=== PATIENT | female | born 1980 | race Two or more races ===

== ENCOUNTER 2019-10-22 18:02 | Emergency (ER) | payer SELFPAY ==
[~2019-10-22] VITALS: Ht 154.9 cm; Wt 81.8 kg
[~2019-10-22 18:02] MED LIST: IBUP200C PO
[2019-10-22 18:38] VITALS: BP 165/107
[2019-10-22] MEDS ORDERED: CEPH500C PO (19:11)
--- NOTE | 2019-10-22 19:11 | PHYS DOC ---
Past Medical History Past Medical History: No Pertinent History Past Surgical History: No Surgical History Smoking Status: Never Smoker Alcohol Use: None Drug Use: None Adult General Chief Complaint Chief Complaint: ABSCESS HPI HPI Patient is a 39 year old female who presents to the emergency department with complaints of a tender, red, warm area to the right posterior scalp for the last 2-3 days. She denies any fever, cough, ear pain, sore throat, nausea, vomiting, diarrhea, abdominal pain, shortness of breath, itching, or rash. Patient states that there has been no drainage or bleeding from the site. Currently rates the discomfort a 10 out of 10 on the pain scale, the pain increases at the areas touch. She denies any alleviating factors. Review of Systems Review of Systems Complete ROS is negative unless otherwise noted in HPI. Allergies Allergies Allergies Coded Allergies Type Severity Reaction Last Updated Verified No Known Drug Allergies 03/02/14 No Physical Exam Physical Exam See Above Constitutional: Well developed, well nourished, no acute distress, non-toxic appearance. [] HENT: Normocephalic, atraumatic, bilateral external ears normal, oropharynx moist, no oral exudates, nose normal. [] Eyes: PERRLA, EOMI, conjunctiva normal, no discharge. [] Neck: Normal range of motion, no tenderness, supple, no stridor. [] Cardiovascular:Heart rate regular rhythm Lungs & Thorax: Respirations even and unlabored, no retractions, no respiratory distress Skin: Warm, dry, no erythema, no rash; 1 cm diameter erythemic, warm, tender area noted to right posterior scalp, no active drainage or bleeding, consistent with ingrown hair/ folliculitis. [] Extremities: No cyanosis, ROM intact, no edema. [] Neurologic: Alert and oriented X 3, no focal deficits noted. [] Psychologic: Affect normal, judgement normal, mood normal. [] Current Patient Data Vital Signs Vital Signs Date Time Temp Pulse Resp B/P (MAP) Pulse Ox O2 Delivery O2 Flow Rate FiO2 10/22/19 18:38 98.3 81 18 165/107 (126) 100 Room Air 98.3 EKG EKG [] Radiology/Procedures Radiology/Procedures [] Course & Med Decision Making Course & Med Decision Making Pertinent Labs and Imaging studies reviewed. (See chart for details) [] Dragon Disclaimer Dragon Disclaimer This electronic medical record was generated, in whole or in part, using a voice recognition dictation system. Departure Departure Impression: Primary Impression: Ingrown hair Additional Impression: Folliculitis Disposition: 01 HOME, SELF-CARE Condition: STABLE Referrals: UNKNOWN PCP NAME (PCP) Patient Instructions: Folliculitis Additional Instructions: Fill the prescription and take as directed. Take Tylenol or Ibuprofen as needed for pain. Apply warm moist heat to area every 3-4 hours while awake and as needed for comfort. Follow up with your primary care doctor at [facility] next week, return to the ER if symptoms worsen or you develop a fever. Scripts Cephalexin (CEPHALEXIN) 500 Mg Capsule 1 CAP PO QID for 7 Days, #28 CAP 0 Refills Prov: ABBY VAZQUEZ APRN 10/22/19 Problem Qualifiers ABBY VAZQUEZ APRN Oct 22, 2019 19:11
== END 2019-10-22 19:15 | disposition home or self-care (01) ==
LOC: ER 18:02
DX: L73.1 Pseudofolliculitis barbae (principal); R20.8 Other disturbances of skin sensation; L53.9 Erythematous condition, unspecified
CPT/HCPCS: 99283